=== PATIENT | female | born 1975 | race Two or more races ===

== ENCOUNTER 2020-01-02 14:21 | Emergency (ER) | payer MEDICAID, OTHER ==
[~2020-01-02] VITALS: Ht 162.6 cm; Wt 65.8 kg
[2020-01-02 14:21] VITALS: BP 160/100
[~2020-01-02 14:21] MED LIST: ALBUTEROL SULF8.5 GM INH; NKM; PROMETHAZINE-C118 M1 ORAL
--- NOTE | 2020-01-02 14:21 | NUR ---
ED Nurse Note: PT walke din to ED for C/O pain to left upper back area x 5 days. pt denies any recent fall or injury
--- NOTE | 2020-01-02 14:34 | NUR ---
ED Nurse Note: urine colelcted and sent to lab
--- NOTE | 2020-01-02 14:53 | Emergency Room Report ---
History of Present Illness General Chief Complaint: Back Pain-No Injury Source: Patient Present Illness HPI Disclaimer: Please note that this report is being documented using [employer] technology. This can lead to erroneous entry secondary to incorrect interpretation by the dictating instrument. HPI: 44-year-old female presents with left mid back pain radiating to the front. Symptoms present for 5 days. Patient does work stocking inventory. She states the pain is 8 out of 10 aching in nature worse with movement. She denies any fevers nausea vomiting or abdominal pain. She denies any urinary complaints including dysuria, urinary frequency or hematuria. She has been taking Tylenol with some relief. PMH: Patient denies any past medical history PSH: Reviewed Social Hx: Patient denies any smoking drinking or illicit drug use Allergies: Coded Allergies: PENICILLINS (Verified Allergy, Severe, Rash, 01/18/15) Uncoded Allergies: PENICILLIN (Allergy, Unknown, 01/02/20) COVID-19 Screening Contact w/high risk pt: No Recent Travel to affected area: No Experienced COVID-19 symptoms?: No Patient History Now: No Nursing Documentation-PMH Hx Hypertension: Yes Hx Asthma: Yes Review of Systems All Other Systems: negative except mentioned in HPI Physical Exam Vital Signs Date Time Temp Pulse Resp B/P (MAP) Pulse Ox O2 Delivery O2 Flow Rate FiO2 01/02/20 14:13 99.0 103 18 169/107 (127) 94 Room Air Sp02 EP Interpretation: reviewed, normal General Appearance: well appearing, no apparent distress Head: normocephalic, atraumatic Eyes: bilateral eye PERRL, bilateral eye EOMI ENT: hearing grossly normal, moist mucus membranes Neck: full range of motion, supple Respiratory: lungs clear, normal breath sounds, no rhonchi, no respiratory distress, no retraction, no wheezing Cardiovascular #1: normal peripheral pulses, regular rate, rhythm, no murmur Gastrointestinal: non tender, soft, non-distended, no guarding Musculoskeletal: other - Mild pain with range of motion of left arm but need left shoulder blade. No CVA tenderness bilaterally. No crepitus or deformity noted. No rash noted Neurologic: alert, oriented x3, no focal defects Skin: normal color, warm/dry Medical Decision Making ER Course Differential diagnosis included but not limited to rotator cuff injury, muscle strain, muscle spasm, did consider UTI as well. On exam patient in no acute distress. No CVA tenderness afebrile without urinary complaints. I suspect most likely musculoskeletal etiology. Urinalysis completed and showed 1+ leukocyte esterase but negative nitrites, no WBCs, few scattered squamous cells so currently have low suspicion for UTI. Will discharge with analgesics, muscle relaxants and outpatient follow-up with PMD with return precautions. Laboratory Tests Test 01/02/20 14:34 Urine Color Pale yellow Urine Appearance Clear Urine pH 6 (4.5-8.0) Urine Specific [place] 1.010 (1.005-1.035) Urine Protein Negative (NEGATIVE) Urine Glucose (UA) Negative (NEGATIVE) Urine Ketones Negative (NEGATIVE) Urine Blood Negative (NEGATIVE) Urine Nitrite Negative (NEGATIVE) Urine Bilirubin Negative (NEGATIVE) Urine Urobilinogen Normal MG/DL (0.0-1.0) Urine Leukocyte Esterase 1+ (NEGATIVE) H Urine RBC 0-2 /HPF (0 - 2) Urine WBC 0-2 /HPF (0 - 2) Urine Squamous Epithelial Cells Few /LPF (NONE/OCC) Urine Bacteria Few /HPF (NONE) Last Vital Signs Date Time Temp Pulse Resp B/P (MAP) Pulse Ox O2 Delivery O2 Flow Rate FiO2 01/02/20 14:21 98.8 96 18 160/100 96 Room Air Status: unchanged Disposition: HOME, SELF-CARE Condition: Stable Scripts Cyclobenzaprine Hcl (CYCLOBENZAPRINE HCL) 5 Mg Tablet 5 MG ORAL QHS PRN for For Pain, #10 TAB Prov: Carlos Bowers M.D. 01/02/20 Naproxen* (NAPROXEN*) 500 Mg Tablet 500 MG ORAL TWICE A DAY PRN for For Pain, #30 TAB Prov: Carlos Bowers M.D. 01/02/20 Carlos Bowers M.D. January 02, 2020 14:53
[2020-01-02 15:02] LABS: APPEARANCE,URINE CLEAR; BILIRUBIN, URINE NEGATIVE (NEGATIVE); COLOR,URINE PALE YELLOW; GLUCOSE, URINE (UA) NEGATIVE (NEGATIVE); KETONES,URINE NEGATIVE (NEGATIVE); LEUKOCYTE ESTERASE ,URINE 1+ (NEGATIVE); NITRITE,URINE NEGATIVE (NEGATIVE); PROTEIN,URINE NEGATIVE (NEGATIVE); UROBILINOGEN,URINE NORMAL MG/DL (0.0-1.0)
[2020-01-02 15:21] LABS: PH,URINE 6 (4.5-8.0)
[2020-01-02] MEDS ORDERED: NAPROXEN500 M2 ORAL (15:42)
[2020-01-02] MEDS ORDERED: CYCLOBENZAPRINE5 MG ORAL (15:42)
[2020-01-02 15:50] VITALS: BP 145/78
--- NOTE | 2020-01-02 15:50 | NUR ---
ED Nurse Note: Pt cleared by ERMD for discharge. DC instructions/prescription was given and explained to pt and verbalized understanding of teachings. All medical deviecs such as ID band removed. Pt is AAO x4, ambulatory and left with all personal belongings.
== END 2020-01-02 15:50 | disposition home or self-care (01) ==
LOC: EMR 15:15
DX: M54.9 Dorsalgia, unspecified (principal); Z88.0 Allergy status to penicillin; I10 Essential (primary) hypertension
CPT/HCPCS: 81003; Z7502; 99283